=== PATIENT | male | born 1990 | race Caucasian/White ===

== ENCOUNTER 2017-10-18 10:27 | Emergency (ER) | payer BC ==
--- NOTE | 2017-10-18 11:12 | EDPHY ---
H & P Time Seen by Provider: 10/18/17 10:39 HPI/ROS: CHIEF COMPLAINT: Right lower leg injury HISTORY OF PRESENT ILLNESS: 27-year-old male presents to the emergency department with injury to his right lower leg. [place] cut his right lower leg. The incident happened around 7:30 last evening. He presents now to the emergency department over 12 hr later. His last tetanus shot was within the see year. He complains of isolated pain to the right lower leg. Denies any other trauma or injury. ROS: Denies numbness or tingling in his toes, pain in his right ankle or knee. Denies retained foreign body. Past Medical/Surgical History: Negative Social History: Single and lives in [place] Smoking Status: Never smoked Physical Exam: On examination the patient has superficial abrasions to the anterior medial aspect of his right lower leg. He also has a smaller 2 cm laceration which appears fairly superficial to the anterior medial aspect of the right lower leg. No evidence of retained foreign body. There is some dirt and debris in the wound. No palpable bony tenderness. Full range of motion of his right lower extremity. Normal gait. No redness or swelling or signs of infection. Constitutional: Initial Vital Signs Temperature (C) 37.0 C 10/18/17 10:31 Heart Rate 78 10/18/17 10:31 Respiratory Rate 16 10/18/17 10:31 Blood Pressure 152/92 H 10/18/17 10:31 O2 Sat (%) 95 10/18/17 10:31 O2 Delivery Mode Room Air Allergies/Adverse Reactions: No Known Allergies Allergy (Unverified 10/18/17 10:31) Home Medications: Medication Instructions Recorded NK [No Known Home Meds] 10/18/17 MDM/Departure - MDM ED Course/Re-evaluation: The patient was warned regarding risks of infection. I did consider delayed primary closure and starting the patient on antibiotics and bring him back for closure, however I feel that the wound is very superficial will likely heal well on its own. I did give him wound care precautions. His wounds were thoroughly cleansed and dressed in the emergency department. His tetanus shot is current. - Depart Disposition: Home, Routine, Self-Care Clinical Impression: Abrasion of right lower leg Qualifiers: Encounter type: initial encounter Qualified Code(s): S80.811A - Abrasion, right lower leg, initial encounter Condition: Good Instructions: Abrasion (ED), Acute Wounds (ED) Additional Instructions: Return if you notice any signs or symptoms of infection such as redness, swelling, increased pain, fever, purulent drainage. Avoid open water until the wound has completely healed. Referrals: NONE *PRIMARY CARE P,. [Primary Care Provider] - As per Instructions
[2017-10-18 11:52] VITALS: BP 147/82
== END 2017-10-18 11:52 | disposition home or self-care (01) ==
DX: S80.811A Abrasion, right lower leg, initial encounter (principal); V18.4XXA Pedal cycle driver injured in noncollision transport accident in traffic accident, initial encounter; Y92.89 Other specified places as the place of occurrence of the external cause; Y99.8 Other external cause status; Y93.55 Activity, bike riding